=== PATIENT | female | born 1985 | race Caucasian/White ===

== ENCOUNTER 2016-11-27 17:15 | Emergency (ER) | payer OTHER ==
[~2016-11-27] VITALS: Ht 154.9 cm; Wt 81.0 kg
[2016-11-27 17:22] VITALS: TEMP 36.9; Ht 154.9 cm; Wt 81.0 kg
[2016-11-27] MEDS ORDERED: ONDANSETRON INJ 2 MG/ML 2 ML VIAL IV STA (18:00)
[2016-11-27] MEDS ORDERED: SODIUM CHLORIDE 0.9% 1000ML 1,000 ML IV ONE (18:00)
[2016-11-27] MEDS ORDERED: MoRPHine SULFATE 4 MG/ML 1 ML CARP\\VIAL IV STA ×3 (18:00→20:31)
[2016-11-27] MEDS ORDERED: SODIUM CHLORIDE 0.9% 1000ML 1,000 ML IV STA (18:00)
[2016-11-27] MEDS ORDERED: AMPH10CA3 PO (18:09)
[2016-11-27] MEDS ORDERED: OPTIRAY 320 IV PRN (18:15)
--- NOTE | 2016-11-27 18:18 | EMERGENCY ROOM VISIT NOTE ---
History Report prepared by Christian: Joann Vu Under the Supervision of: Dr. Maurilio Townsend M.D. First contact with patient: 17:44 Chief Complaint: ABDOMINAL PAIN Stated Complaint: POSS. HERNIA AND ADHESIONS ATTACHED TO BLADDER Nursing Triage Summary: pt reports after visit to [facility] and palpation to RLQ that has poss hernia , now with pain in that area History of Present Illness The patient is a 31 year old female who presents to the Emergency Room with complaints of constant RLQ abdominal pain for the past few months that worsened this afternoon. The patient has been experiencing pain around her scar for the past few months. She had a in 2008 and 2009. She spoke with her design supervisor about this and was referred to a gynecological surgeon. She saw the surgeon, Dr. Sharma, today and he was concerned for a hernia so he referred the patient to general surgery. She was advised to come to the ED if her pain worsened. The patient states that her pain increased after her abdomen was palpated today at the office. She describes her pain as "radiating" and rates her current pain as a 9/10 in severity. Coughing exacerbates her pain. The patient reports nausea and one episode of vomiting [employer]. She denies dysuria, hematuria, back pain, hematochezia, and melena. She denies any chance of . She still has her appendix and her ovaries. Source of History: patient, family Onset: the past few months Position: abdomen (RLQ) Symptom Intensity: 9/10 Quality: other (radiating) Timing: worsening Modifying Factors (Worsening): other (coughing and palpation) Associated Symptoms: + nausea, + vomiting, No back pain, No hematochezia, No melena, No urinary symptoms Review of Systems See HPI for pertinent positives & negatives. A total of 10 systems reviewed and were otherwise negative. Past Medical & Surgical Medical Problems: (1) History of lupus (2) Mixed connective tissue disease Old medical records were reviewed. Nurse's notes were reviewed and I agree with. Family History No pertinent history stated. Social History Smoking Status: Current Every Day Smoker Drug Use: none Marital Status: Housing Status: lives with family Current/Historical Medications Scheduled Amphetamine-Dextroamphetamine 10MG (Adderall Xr 10MG), 10 MG PO DAILY Scheduled PRN Oxycodone Immediate Rel Tab (Roxicodone Ir), 1-2 TAB PO Q4H PRN for Severe Pain Allergies Coded Allergies: Vancomycin (Verified Allergy, Severe, Red Man Syndrome, breathing difficulties, 11/27/16) Butorphanol (Verified Allergy, Intermediate, Agitation and hallucinations , 11/27/16) Metoclopramide (Verified Allergy, Intermediate, Agitation and hallucinations, 11/27/16) Zolpidem (Verified Allergy, Intermediate, Hallucinations, 11/27/16) Physical Exam Vital Signs Date Time Temp Pulse Resp B/P Pulse Ox O2 Delivery O2 Flow Rate FiO2 11/27/16 21:03 70 18 118/74 99 11/27/16 20:25 86 20 118/74 95 Room Air 11/27/16 18:38 89 20 109/75 95 Room Air 11/27/16 17:22 36.9 105 18 120/74 97 Room Air Physical Exam General: Well developed well nourished non ill appearing young female in no acute distress, breathing comfortably on room air. Normal speech HEENT: Normal cephalic atraumatic. Pupils are equal round and reactive to light. Sclera are anicteric. Extraocular movements are intact. Oropharynx is pink with moist mucous membranes. No swelling of the mouth lips or tongue. Neck: Supple with a midline trachea. No meningeal signs or stiffness, no JVD or bruits. No Stridor. Chest: Clear to auscultation bilaterally. No wheezes or rhonchi. No increased work of breathing. Heart: regular rate and rhythm. Abdomen: Soft mildly tender in the RLQ around her scar, no redness or warmth, possible mild induration. Extremities: No cyanosis clubbing or edema. No calf tenderness or assymetry Spine/Back. Non tender to palpation. No CVA tenderness Skin: Good turgor without rashes. Neurologic exam: Cranial nerves two through 12 are intact. Motor and sensation are intact and symmetrical throughout. Medical Decision & Procedures ER Provider Diagnostic Interpretation: Radiology results as stated below per my review and radiologist interpretation: ABDOMEN AND PELVIS CT WITH IV CONTRAST CT DOSE: 454.53 mGy.cm HISTORY: Right lower quadrant pain. TECHNIQUE: Multiaxial CT images of the abdomen and pelvis were performed following the use of intravenous contrast. COMPARISON STUDY: None. FINDINGS: The lung bases are clear. The liver, spleen, gallbladder, pancreas, kidneys, and adrenal glands are within normal limits. No bowel wall thickening or obstruction. No suspicious lytic or blastic osseous lesions. Small irregular soft tissue densities within the lower anterior pelvic subcutaneous fat abutting the rectus abdominis muscles favor scarring from prior . Dominant right ureter soft tissue density on the left measures 1.6 cm. No loculated fluid collections to suggest an abscess. The anterior abdominal wall is intact. No evidence for a ventral hernia. The bladder, uterus, and ovaries are within normal limits. No pelvic free fluid. Normal appendix. Colonic diverticulosis. IMPRESSION: 1. Small irregular soft tissue densities within the lower anterior pelvic subcutaneous fat abutting the rectus abdominis muscles favor scarring from prior . 2. No evidence for ventral hernia. 3. No bowel wall thickening or obstruction. 4. Colonic diverticulosis. 5. Normal appendix. Electronically signed by: Juan Nguyen M.D. 11/27/2016 8:05 PM Dictated Date/Time: 11/27/2016 7:57 PM Laboratory Results 11/27/16 18:05 Red Blood Count 4.76, Mean Corpuscular Volume 85.7, Mean Corpuscular Hemoglobin 30.5, Mean Corpuscular Hemoglobin Concent 35.5, Mean Platelet Volume 9.4, Neutrophils (%) (Auto) 55.9, Lymphocytes (%) (Auto) 35.4, Monocytes (%) (Auto) 7.0, Eosinophils (%) (Auto) 1.2, Basophils (%) (Auto) 0.2, Neutrophils # (Auto) 5.00, Lymphocytes # (Auto) 3.17, Monocytes # (Auto) 0.63, Eosinophils # (Auto) 0.11, Basophils # (Auto) 0.02 11/27/16 18:05 Test 11/27/16 00:00 11/27/16 18:05 Urine Color YELLOW Urine Appearance CLEAR (CLEAR) Urine pH 6.0 (4.5-7.5) Urine Specific [place] > 1.030 (1.000-1.030) Urine Protein NEG (NEG) Urine Glucose (UA) NEG (NEG) Urine Ketones NEG (NEG) Urine Occult Blood NEG (NEG) Urine Nitrite NEG (NEG) Urine Bilirubin NEG (NEG) Urine Urobilinogen NEG (NEG) Urine Leukocyte Esterase TRACE (NEG) Urine WBC (Auto) 10-30 /hpf (0-5) Urine RBC (Auto) 0-4 /hpf (0-4) Urine Hyaline Casts (Auto) 1-5 /lpf (0-5) Urine Epithelial Cells (Auto) >30 /lpf (0-5) Urine Bacteria (Auto) 2+ (NEG) Urine Pathogenic Casts /lpf (0) White Blood Count 8.96 K/uL (4.8-10.8) Red Blood Count 4.76 M/uL (4.2-5.4) Hemoglobin 14.5 g/dL (12.0-16.0) Hematocrit 40.8 % (37-47) Mean Corpuscular Volume 85.7 fL (80-100) Mean Corpuscular Hemoglobin 30.5 pg (25-34) Mean Corpuscular Hemoglobin Concent 35.5 g/dl (32-36) Platelet Count 303 K/uL (130-400) Mean Platelet Volume 9.4 fL (7.4-10.4) Neutrophils (%) (Auto) 55.9 % Lymphocytes (%) (Auto) 35.4 % Monocytes (%) (Auto) 7.0 % Eosinophils (%) (Auto) 1.2 % Basophils (%) (Auto) 0.2 % Neutrophils # (Auto) 5.00 K/uL (1.4-6.5) Lymphocytes # (Auto) 3.17 K/uL (1.2-3.4) Monocytes # (Auto) 0.63 K/uL (0.11-0.59) Eosinophils # (Auto) 0.11 K/uL (0-0.5) Basophils # (Auto) 0.02 K/uL (0-0.2) RDW Standard Deviation 40.1 fL (36.4-46.3) RDW Coefficient of Variation 12.8 % (11.5-14.5) Immature Granulocyte % (Auto) 0.3 % Immature Granulocyte # (Auto) 0.03 K/uL (0.00-0.02) Anion Gap 10.0 mmol/L (3-11) Est Creatinine Clear Calc Drug Dose 116.0 ml/min Estimated GFR () 136.3 Estimated GFR (Non- 117.6 BUN/Creatinine Ratio 14.0 (10-20) Calcium Level 8.8 mg/dl (8.5-10.1) Total Bilirubin 0.6 mg/dl (0.2-1) Direct Bilirubin 0.1 mg/dl (0-0.2) Aspartate Amino Transf (AST/SGOT) 23 U/L (15-37) Alanine Aminotransferase (ALT/SGPT) 41 U/L (12-78) Alkaline Phosphatase 65 U/L (45-117) Total Protein 7.2 gm/dl (6.4-8.2) Albumin 3.8 gm/dl (3.4-5.0) Lipase 57 U/L (73-393) Human Chorionic Gonadotropin, Qual NEG (NEG) Laboratory studies as stated above per my review. Medications Administered Medications (Trade) Dose Ordered Sig/Margarita Route Start Time Stop Time Status Last Admin Dose Admin Sodium Chloride (Nss 1000ml) 1,000 ml @ 999 mls/hr Q1H1M STAT IV 11/27/16 18:00 11/27/16 19:00 DC 11/27/16 18:37 999 MLS/HR Morphine Sulfate (MoRPHine SULFATE INJ) 4 mg NOW STAT IV 11/27/16 18:00 11/27/16 18:02 DC 11/27/16 18:37 4 MG Ondansetron HCl (Zofran Inj) 4 mg NOW STAT IV 11/27/16 18:00 11/27/16 18:02 DC 11/27/16 18:37 4 MG Morphine Sulfate (MoRPHine SULFATE INJ) 4 mg NOW STAT IV 11/27/16 19:13 11/27/16 19:15 DC 11/27/16 19:32 4 MG Morphine Sulfate (MoRPHine SULFATE INJ) 4 mg NOW STAT IV 11/27/16 20:31 11/27/16 20:32 DC 11/27/16 20:43 4 MG Oxycodone HCl (Roxicodone Immediate Rel 5MG Home Pack) 1 homepack UD ONCE PO 11/27/16 20:45 11/27/16 20:46 DC 11/27/16 20:42 1 HOMEPACK ED Course 1757: Past medical records reviewed. The patient was evaluated in room C4, and a complete history and physical examination were performed. 1800: Zofran 4 mg IV, morphine sulfate 4 mg IV, NSS 1000 ml @ 150 mls/hr IV, NSS 1000 ml @ 999 mls/hr IV 1823: I reassessed the patient at this time. She is resting more comfortably. 1910: I reassessed the patient. The morphine helped initially but her pain is starting to return. She is waiting to go to CT. 1912: Morphine sulfate 4 mg IV 2020: I reassessed the patient at this time. She is feeling better and resting comfortably. I discussed the results and treatment plan with the patient. I answered all pertaining questions that she had. She expressed understanding and verbalized agreement. The patient will be discharged home. 2030: Morphine sulfate 4 mg IV 2044: Oxycodone HCl 1 hopewell junctionpack PO Medical Decision Differential diagnoses includes hernia, abscess, appendicitis, gynecologic process, UTI, electrolyte abnormality. This patient comes in as described above. She was placed in room C4. She is having pain in her right lower abdomen that has been going on for a while and got worse today after she got examined by her design supervisor. She is concerned she could have a hernia along her incision site. IV access established she is not driving. She was given IV morphine and Zofran IV as well as IV fluids multiple blood tests was obtained. Urinalysis and culture was obtained. The CAT scan was obtained. He did receive additional IV morphine while she was here. She has no white count or fever to suggest infection. She is not . She's had no acute electrolyte metabolic abnormalities. Her urinalysis is suboptimal with greater than 30 epithelial cells and a cultures pending. I do not think she likely has UTI. CAT scan was unremarkable in terms of there and she has no hernia or any other acute abnormalities with exception of what the radiologist thinks is likely scar tissue along the wound site. She's had no redness or drainage. I will have her use ibuprofen for pain. For breakthrough pain, she can use OxyIR 5 mg and was warned that this could make her drowsy. She should follow-up with her doctor within next couple days for recheck and return if increasing pain, fever or chills, redness or warmth, worsening of symptoms, any new problems concerns. The patient was happy with plan and she was discharged home with her family driving. Impression Primary Impression: Right lower quadrant abdominal pain Scribe Attestation The scribe's documentation has been prepared under my direction and personally reviewed by me in its entirety. I confirm that the note above accurately reflects all work, treatment, procedures, and medical decision making performed by me. Departure Information Dispostion Home / Self-Care Prescriptions Oxycodone Immediate Rel Tab (ROXICODONE IR) 5 Mg Tab 1-2 TAB PO Q4H Y for Severe Pain, #24 TAB Prov: Maurilio Townsend M.D. 11/27/16 Referrals Tigist Whitfield M.D. (PCP) Forms HOME CARE DOCUMENTATION FORM, IMPORTANT VISIT INFORMATION Patient Instructions My [facility] Additional Instructions Rest. Drink plenty of fluids. For pain, may use OxyIR 5 mg, one or 2 pills every 4-6 hours as needed Return if: Increasing pain or swelling, worsening symptoms, fever chills, vomiting, any new problems or concerns Follow-up with in 1-2 days recheck.
[2016-11-27 18:19] LABS: BASO % 0.2 %; BASO ABS # 0.02 K/uL (0-0.2); COMPLETE YES; EOS % 1.2 %; HEMATOCRIT 40.8 % (37-47); IG% 0.3 %; LYMPH % 35.4 %; LYMPH ABS # 3.17 K/uL (1.2-3.4); MEAN CELL VOLUME 85.7 fL (80-100); MEAN CORPUSCULAR HEMOGLOBIN 30.5 pg (25-34); MEAN CORPUSCULAR HGB CONC 35.5 g/dl (32-36); MEAN PLATELET VOLUME 9.4 fL (7.4-10.4); NEUT % 55.9 %; PLATELET COUNT 303 K/uL (130-400); RED BLOOD COUNT 4.76 M/uL (4.2-5.4); WHITE BLOOD COUNT 8.96 K/uL (4.8-10.8)
[2016-11-27 18:37] LABS: CALCIUM 8.8 mg/dl (8.5-10.1); CREATININE 0.69 mg/dl (0.60-1.20); POTASSIUM 3.9 mmol/L (3.5-5.1)
[2016-11-27 19:19] LABS: PREG INTERNAL NEGATIVE QC NEG CLEAR BACKGROUND; PREG INTERNAL POSITIVE QC POS CONTROL LINE
--- NOTE | 2016-11-27 20:06 | DIAGNOSTIC IMAGING REPORT ---
ABDOMEN AND PELVIS CT WITH IV CONTRAST CT DOSE: 454.53 mGy.cm HISTORY: Right lower quadrant pain. TECHNIQUE: Multiaxial CT images of the abdomen and pelvis were performed following the use of intravenous contrast. COMPARISON STUDY: None. FINDINGS: The lung bases are clear. The liver, spleen, gallbladder, pancreas, kidneys, and adrenal glands are within normal limits. No bowel wall thickening or obstruction. No suspicious lytic or blastic osseous lesions. Small irregular soft tissue densities within the lower anterior pelvic subcutaneous fat abutting the rectus abdominis muscles favor scarring from prior . Dominant right ureter soft tissue density on the left measures 1.6 cm. No loculated fluid collections to suggest an abscess. The anterior abdominal wall is intact. No evidence for a ventral hernia. The bladder, uterus, and ovaries are within normal limits. No pelvic free fluid. Normal appendix. Colonic diverticulosis. IMPRESSION: 1. Small irregular soft tissue densities within the lower anterior pelvic subcutaneous fat abutting the rectus abdominis muscles favor scarring from prior . 2. No evidence for ventral hernia. 3. No bowel wall thickening or obstruction. 4. Colonic diverticulosis. 5. Normal appendix. Electronically signed by: Juan Nguyen M.D. 11/27/2016 8:05 PM Dictated Date/Time: 11/27/2016 7:57 PM
[2016-11-27] MEDS ORDERED: OXYC1TAB3 PO (20:32)
[2016-11-27] MEDS ORDERED: OXYCODONE IR HOME PACK PO ONE (20:45)
[2016-11-27 21:03] VITALS: BP 118/74; PULSE 70; O2SAT 99
[2016-11-27 21:44] LABS: URINE APPEARANCE CLEAR (CLEAR); URINE BILIRUBIN NEG (NEG); URINE COLOR YELLOW; URINE EPITHELIAL CELL AUTO >30 /lpf (0-5); URINE NITRITE NEG (NEG); UROBILINOGEN NEG (NEG)
[2016-11-27 21:53] LABS: MANUAL MICROSCOPIC REQUIRED? NO; REVIEW REQ? YES; URINE SPECIFIC GRAVITY > 1.030 (1.000-1.030)
== END 2016-11-27 21:05 | disposition home or self-care (01) ==
LOC: C.EDB 17:17 → C.EDC 21:05
DX: R10.31 Right lower quadrant pain (principal); R11.2 Nausea with vomiting, unspecified; Z98.890 Other specified postprocedural states; F17.200 Nicotine dependence, unspecified, uncomplicated

== ENCOUNTER → 2017-01-28 | Outpatient (CLI) | payer OTHER ==
[~2017-01-28] MED LIST: ADVIN10/60 INH; AMPH10CA3 PO; LEVO5TAB2 PO; MELO7.5T5 PO; OXYC1TAB3 PO; VNTHFA/IN INH
--- NOTE | 2017-01-28 16:52 | MAMMOGRAPHY REPORT ---
UNILATERAL RIGHT DIGITAL DIAGNOSTIC MAMMOGRAM TOMOSYNTHESIS WITH CAD AND TARGETED RIGHT ULTRASOUND: 01/28/2017 CLINICAL HISTORY: 31-year-old woman with bilateral subpectoral saline implants presents with pain in the lateral right breast. She also reports a high riding right-sided implant. No family history o f breast cancer. TECHNIQUE: First real-time high-resolution ultrasound was performed in the area of pain pointed out by the patient, within the lateral right breast. After ultrasound was performed and discussing the patient's symptoms, the decision was made to perform unilateral right mammography as well to better assess the implant. Therefore, right CC and MLO views of the breasts with and without implant displ acement views were obtained. Tomosynthesis was performed on the implant displaced views. Current st udy was also evaluated with a Computer Aided Detection (CAD) system. COMPARISON: Comparison is made to exam dated: 01/28/2017 ultrasound - [facility]. BREAST COMPOSITION: The tissue of the right breast is heterogeneously dense, which may obscure smal l masses. FINDINGS: Real-time high-resolution ultrasound was performed in the area of pain pointed out by the patient, along the lateral right breast from the approximate 8:00 to 10:00 axes, 15 cm from the nip ple. A portion of the lateral right subpectoral saline implant is identified. The implant is intac t. No discrete solid or cystic mass is seen in the area of pain. Mammographically, there is an intact subpectoral saline implant. There is no evidence of a suspicio us breast mass, architectural distortion or suspicious calcifications. Morphologically normal lymph nodes project over the superior pectoralis muscle on the right MLO view. IMPRESSION: ACR BI-RADS CATEGORY 1: NEGATIVE, TARGETED ULTRASOUND ACR BI-RADS CATEGORY 1: NEGATIVE There is no mammographic or targeted sonographic evidence of malignancy. No suspicious mammographic or sonographic abnormality is seen to explain the nonfocal mastalgia in the lateral right breast. I am unsure if the pain could be related to prior surgery or the location of the right implant. The refore, consider surgical consultation for implant assessment, particularly given the high riding na ture of the right implant compared to the left. These results and recommendations were discussed with the patient at the time of the exam. Approximately 10% of breast cancers are not detected with mammography. A negative mammographic repor t should not delay biopsy if a clinically suggestive mass is present. Martine Cortes M.D. ay/:01/28/2017 16:05:53 Beauty Specialist: Rosa Lion RT(R)(M), [facility] letter sent: Normal 1/2 BI-RADS Code: ACR BI-RADS Category 1: Negative Ultrasound BI-RADS: ACR BI-RADS Category 1: Negative
== END | disposition home or self-care (01) ==
LOC: C.MAMM 13:28
PROVIDERS: ATTEND Family Medicine
DX: N64.4 Mastodynia (principal)

== ENCOUNTER 2017-09-10 23:43 | Emergency (ER) | payer OTHER ==
[~2017-09-10] VITALS: Ht 154.9 cm; Wt 89.9 kg
[~2017-09-10 23:43] MED LIST changes: -ADVIN10/60 INH; -LEVO5TAB2 PO; -MELO7.5T5 PO; -OXYC1TAB3 PO; -VNTHFA/IN INH
[2017-09-10 23:54] VITALS: TEMP 36.9; Ht 154.9 cm; Wt 89.9 kg
[2017-09-11] MEDS ORDERED: MoRPHine SULFATE 4 MG/ML 1 ML CARP\\VIAL IV STA (00:56)
[2017-09-11] MEDS ORDERED: ONDANSETRON INJ 2 MG/ML 2 ML VIAL IV STA (00:56)
[2017-09-11] MEDS ORDERED: OPTIRAY 320 IV PRN (01:15)
[2017-09-11 01:19] LABS: BASO % 0.4 %; BASO ABS # 0.04 K/uL (0-0.2); COMPLETE YES; EOS % 3.6 %; HEMATOCRIT 38.8 % (37-47); IG% 0.4 %; LYMPH % 34.5 %; LYMPH ABS # 3.75 K/uL (1.2-3.4); MEAN CELL VOLUME 86.8 fL (80-100); MEAN CORPUSCULAR HEMOGLOBIN 29.5 pg (25-34); MEAN PLATELET VOLUME 9.5 fL (7.4-10.4); MONO % 8.3 %; NEUT % 52.8 %; PLATELET COUNT 246 K/uL (130-400); RED BLOOD COUNT 4.47 M/uL (4.2-5.4); WHITE BLOOD COUNT 10.88 K/uL (4.8-10.8)
[2017-09-11 01:40] LABS: BUN/CREATININE RATIO 21.2 (10-20); CALCIUM 8.4 mg/dl (8.5-10.1); CREATININE 0.66 mg/dl (0.60-1.20); POTASSIUM 3.9 mmol/L (3.5-5.1)
[2017-09-11 01:42] LABS: PREG INTERNAL NEGATIVE QC NEG CLEAR BACKGROUND; PREG INTERNAL POSITIVE QC POS CONTROL LINE
[2017-09-11] MEDS ORDERED: VNTHFA/IN INH (02:48)
[2017-09-11] MEDS ORDERED: LEVO5TAB2 PO (02:48)
[2017-09-11] MEDS ORDERED: MELO7.5T5 PO (02:48)
[2017-09-11] MEDS ORDERED: ADVIN10/60 INH (02:48)
[2017-09-11] MEDS ORDERED: OXYC1TAB3 PO (03:13)
[2017-09-11] MEDS ORDERED: OXYCODONE IR HOME PACK PO ONE (03:15)
[2017-09-11 03:24] VITALS: BP 113/81; PULSE 75; O2SAT 96
--- NOTE | 2017-09-11 06:52 | EMERGENCY ROOM VISIT NOTE ---
History First contact with patient: 00:45 Chief Complaint: RECTAL BLEEDING Stated Complaint: HEMORRHOID Nursing Triage Summary: Bleeding hemorrhoid, saw her PCP and was referred to surgeon. Patient to see surgeon friday but pain is unbearable tonight. History of Present Illness The patient is a 32 year old female who presents to the Emergency Room with complaints of severe rectal pain for the past few days has a history of hemorrhoids but states this feels different. She has tried Preparation H, Nitropaste, witch soy pads and many other things. Patient has appointment on Friday with surgery. Pain currently 9 out of 10. Nothing makes it better or worse. It does not radiate. Patient denies chest pain, dyspnea, fever, chills , vomiting, diarrhea Review of Systems See HPI for pertinent positives & negatives. A total of 10 systems reviewed and were otherwise negative. Past Medical/Surgical History Medical Problems: (1) History of lupus (2) Mixed connective tissue disease Social History Smoking Status: Former Smoker Drug Use: none Marital Status: Housing Status: lives with family Current/Historical Medications Scheduled Fluticasone Prop/Salmeterol (Advair Diskus 100/50 60 Dose), 1 PUFF INH BID Levocetirizine Dihydrochloride (Xyzal), 5 MG PO HS Meloxicam (Mobic), 7.5 MG PO BID Scheduled PRN Albuterol Hfa (Ventolin Hfa), 2 PUFFS INH Q6H PRN for SOB/Wheezing Oxycodone Immediate Rel Tab (Roxicodone Ir), 1-2 TAB PO Q4H PRN for Severe Pain Physical Exam Vital Signs Date Time Temp Pulse Resp B/P (MAP) Pulse Ox O2 Delivery O2 Flow Rate FiO2 09/11/17 03:24 75 18 113/81 96 Room Air 09/11/17 03:13 68 16 99/49 97 Room Air 09/11/17 02:21 89 18 125/80 96 Room Air 09/11/17 01:33 75 16 134/69 96 Room Air 09/10/17 23:54 36.9 78 18 125/77 94 Room Air Physical Exam VITALS: Vitals are noted on the nurse's note and reviewed by myself. Vital signs stable. GENERAL: White female, in no acute distress, nondiaphoretic, well-developed well -nourished. SKIN: Capillary reflex less than 2 seconds. HEENT: Normocephalic. PERRLA. EOMI. Nares patent. Mucous membranes moist. Neck is supple without nuchal rigidity. HEART: Regular rate and rhythm without murmurs gallops or rubs. LUNGS: Clear to auscultation bilaterally without wheezes, rales or rhonchi. No retractions or accessory muscle use. ABDOMEN: Positive bowel sounds x 4. Normal tympanic percussion. Soft, nontender, without masses or organomegaly. Lara sign negative. No guarding or rebound tenderness. No CVA tenderness Rectal exam: Nonthrombosed hemorrhoid at 6:00. No fissures or tears. No fluctuance. Computer Repair Technician present MUSCULOSKELETAL: No gross musculoskeletal defects. No pedal edema. No calf tenderness. NEURO: Patient was alert and oriented to person place and time. Normal sensation to light and sharp touch. No focal neurological deficits. Medical Decision & Procedures Laboratory Results 09/11/17 01:10 Red Blood Count 4.47, Mean Corpuscular Volume 86.8, Mean Corpuscular Hemoglobin 29.5, Mean Corpuscular Hemoglobin Concent 34.0, Mean Platelet Volume 9.5, Neutrophils (%) (Auto) 52.8, Lymphocytes (%) (Auto) 34.5, Monocytes (%) (Auto) 8.3, Eosinophils (%) (Auto) 3.6, Basophils (%) (Auto) 0.4, Neutrophils # (Auto) 5.76, Lymphocytes # (Auto) 3.75, Monocytes # (Auto) 0.90, Eosinophils # (Auto) 0.39, Basophils # (Auto) 0.04 09/11/17 01:10 Test 09/11/17 01:10 White Blood Count 10.88 K/uL (4.8-10.8) Red Blood Count 4.47 M/uL (4.2-5.4) Hemoglobin 13.2 g/dL (12.0-16.0) Hematocrit 38.8 % (37-47) Mean Corpuscular Volume 86.8 fL (80-100) Mean Corpuscular Hemoglobin 29.5 pg (25-34) Mean Corpuscular Hemoglobin Concent 34.0 g/dl (32-36) Platelet Count 246 K/uL (130-400) Mean Platelet Volume 9.5 fL (7.4-10.4) Neutrophils (%) (Auto) 52.8 % Lymphocytes (%) (Auto) 34.5 % Monocytes (%) (Auto) 8.3 % Eosinophils (%) (Auto) 3.6 % Basophils (%) (Auto) 0.4 % Neutrophils # (Auto) 5.76 K/uL (1.4-6.5) Lymphocytes # (Auto) 3.75 K/uL (1.2-3.4) Monocytes # (Auto) 0.90 K/uL (0.11-0.59) Eosinophils # (Auto) 0.39 K/uL (0-0.5) Basophils # (Auto) 0.04 K/uL (0-0.2) RDW Standard Deviation 41.2 fL (36.4-46.3) RDW Coefficient of Variation 12.9 % (11.5-14.5) Immature Granulocyte % (Auto) 0.4 % Immature Granulocyte # (Auto) 0.04 K/uL (0.00-0.02) Anion Gap 4.0 mmol/L (3-11) Est Creatinine Clear Calc Drug Dose 127.1 ml/min Estimated GFR () 137.4 Estimated GFR (Non- 118.5 BUN/Creatinine Ratio 21.2 (10-20) Calcium Level 8.4 mg/dl (8.5-10.1) Human Chorionic Gonadotropin, Qual NEG (NEG) Medications Administered Medications (Trade) Dose Ordered Sig/Margarita Route Start Time Stop Time Status Last Admin Dose Admin Morphine Sulfate (MoRPHine SULFATE INJ) 4 mg NOW STAT IV 09/11/17 00:56 09/11/17 00:58 DC 09/11/17 01:12 4 MG Ondansetron HCl (Zofran Inj) 4 mg NOW STAT IV 09/11/17 00:56 09/11/17 00:58 DC 09/11/17 01:11 4 MG Oxycodone HCl (Roxicodone Immediate Rel 5MG Home Pack) 1 homepack UD ONCE PO 09/11/17 03:15 09/11/17 03:16 DC 09/11/17 03:14 1 HOMEPACK ED Course Prior records reviewed and summarized as above. Triage Nursing notes reviewed. The patient's history was concerning for rectal pain Differential diagnosis: Etiologies such as cellulitis, abscess, MRSA infection,hemorrhoids, fissure, tear,necrotizing fasciitis, as well as others were entertained.. Physical examination: As above ER treatment provided: Morphine, Zofran, OxyIR home pack On reassessment the patient felt better. Diagnostics interpreted by me: The labs revealed mild leukocytosis. Stable H&H Imaging studies: Pelvis CT negative for abscess per radiology This appears to be isolated hemorrhoids. Negative CT scan. Stable H&H. Patient was advised to continue her regimen for her hemorrhoids and continue her stool softeners. She is advised to keep her appointment tomorrow with surgery for her ongoing hemorrhoids or here in the ER sooner for severe pain, fevers, vomiting, worsening signs or symptoms or as needed. Patient is neurovascularly and neurologically intact. She is well-appearing. No signs of abscess or sepsis. By the evaluation outlined above emergent etiologies such as abscess, necrotizing fasciitis, as well as others were deemed relatively unlikely. The pt informed about the findings as listed above. All questions were answered and pleased with the treatment. Return instructions were outlined and the patient was discharged in stable condition. Outpatient prescription management: OxyIR Referral: The patient was referred back to surgery and primary care physician for follow- up in 2 to 3 days for a recheck of the current condition. Case reviewed with my attending Medical Decision As above [place] Drug Monitoring Program Search Results: patient reviewed within database, no issues identified Medication Reconcilliation Current Medication List: was personally reviewed by me Blood Pressure Screening Patient's blood pressure: Normal blood pressure Impression Primary Impression: Hemorrhoids Departure Information Dispostion Home / Self-Care Condition GOOD Prescriptions Oxycodone Immediate Rel Tab (ROXICODONE IR) 5 Mg Tab 1-2 TAB PO Q4H Y for Severe Pain, #10 TAB initial course Prov: Crystal Viramontes .MARK 09/11/17 Forms WORK / SCHOOL INSTRUCTIONS, HOME CARE DOCUMENTATION FORM, IMPORTANT VISIT INFORMATION Patient Instructions Hemorrhoids Self Care, My [facility] [employer] Additional Instructions DO NOT drive, drink alcohol, operate machinery, or perform dangerous activities today. You were given medications in the ER that can affect your ability to safely function or operate a vehicle. Continue all your treatments for your hemorrhoids. Recommend stool softener. Avoid straining when he go the bathroom. Oxycodone (OxyIR) 5mg: Take 1-2 pills every four hours for breakthrough pain. Avoid alcohol, operating machinery or dangerous equipment, working on ladders or roofs, DRIVING, or situations where being under the influence may be dangerous. It is recommended to use an drtx-ywa-ciybnco stool softener such as Colace, 100mg twice daily while taking this medication to avoid constipation. Ibuprofen(Motrin, Advil) may be used for fever or pain. Use 600mg every six hours as needed. Take with food. Avoid using more than 2400mg in a 24 hour period. Do not use 2400mg per day for more than three consecutive days without physician direction. Prolonged inappropriate use can lead to stomach upset or ulcers. (AND/OR) Acetaminophen(Tylenol) may be used for fever or pain. Use 1000mg every six hours as needed. Avoid using more than 3000mg in a 24 hour period. Rest and drink plenty of fluids as tolerated. Continue current medications. Avoid strenuous activities and anything that worsens your pain. Resume normal activities once your symptoms resolve. Return to the ER immediately for worsening or persistent rectal pain, abdominal pain, vomiting, fevers, chest pains, difficulty breathing, worsening of your condition, or as needed. Follow up with your surgeon as scheduled and primary physician in 2-3 days for a recheck of your current condition. Problem Qualifiers Primary Impression: Hemorrhoids Hemorrhoid type: unspecified Qualified Codes: K64.9 - Unspecified hemorrhoids
--- NOTE | 2017-09-11 07:24 | DIAGNOSTIC IMAGING REPORT ---
PELVIS W/IV CONT ONLY (CT) HISTORY: 32 years-old Female presents with acute severe rectal pain with history of hemorrhoids COMPARISON: CT abdomen and pelvis 11/27/2016 TECHNIQUE: Multiple axial CT images of the pelvis were obtained following the intravenous administration of 94 no Optiray 320 IV contrast. A dose lowering technique was used consistent with the principals of DWAYNE. FINDINGS: 2.1 x 1.6 cm cystic structure with peripheral enhancement of the left adnexum suggests dominant follicle. Uterus and right adnexum are unremarkable. There are a few scattered noninflamed colonic diverticula. Normal appendix. No adenopathy. Distal aorta appears normal in course and caliber. Irregular soft tissue attenuating structures of the lower anterior abdominal wall are again seen, lesion of the left measuring 1.2 x 1.7 cm and lesion of the right measuring 1.0 x 1.2 cm. Again, these lesions are seen abutting the rectus musculature appear unchanged from comparison. No focal soft tissue abnormality of the rectum or perirectal tissues. No perirectal abscess. The bones appear intact. Mild intervertebral disc space narrowing with posterior disc bulge at L5-S1. IMPRESSION: 1. No acute intrapelvic abnormality identified. No rectal inflammatory change or perirectal abscess. 2. Mild colonic diverticulosis without diverticulitis. 3. Cystic structure of the left adnexum suggests dominant follicle, 2.1 cm. 4. Irregular soft tissue attenuating structures of the deep subcutaneous lower anterior abdominal wall abutting the rectus musculature likely reflects scarring from prior section. If the patient complains of catamenial associated pain within this region, implants of endometriosis are an additional differential consideration. The above report was generated using voice recognition software. It may contain grammatical, syntax or spelling errors. Electronically signed by: Juan Valenzuela M.D. 09/11/2017 7:22 AM Dictated Date/Time: 09/11/2017 7:00 AM
== END 2017-09-11 03:25 | disposition home or self-care (01) ==
LOC: C.EDB 23:46
DX: K64.9 Unspecified hemorrhoids (principal); Z87.891 Personal history of nicotine dependence

== ENCOUNTER 2017-10-11 02:28 | Emergency (ER) | payer OTHER ==
[~2017-10-11] VITALS: Ht 152.4 cm; Wt 89.6 kg
[~2017-10-11 02:28] MED LIST changes: +ADVIN10/60 INH; -AMPH10CA3 PO; +LEVO5TAB2 PO; +MELO7.5T5 PO; +OXYC1TAB3 PO; +VNTHFA/IN INH
[2017-10-11 02:32] VITALS: TEMP 36.7; Ht 152.4 cm; Wt 89.6 kg
[2017-10-11] MEDS ORDERED: SODIUM CHLORIDE 0.9% 1000ML 1,000 ML IV STA (02:46)
--- NOTE | 2017-10-11 02:51 | EMERGENCY ROOM VISIT NOTE ---
History Report prepared by Christian: Benjamin Barajas Under the Supervision of: Dr. Juju Joyce D.O. First contact with patient: 02:35 Chief Complaint: FLU LIKE SX Stated Complaint: FLU LIKE History of Present Illness The patient is a 32 year old female who presents to the Emergency Room with complaints of worsening flu-like symptoms that onset roughly 72 hours prior to arrival. The patient states that she is currently experiencing nasal congestion/ runny nose, a non producing cough, diarrhea, and chills. She also noted experiencing some left sided chest pain this evening before she had a syncopal episode in the bathtub. The patient feels as though she is warm, but has not had any recorded high temperatures. She notes that she has been hospitalized with the flu three times before due to a connective tissue disease which causes her to decompensate quickly. 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 A total of 10 systems reviewed and were otherwise negative. Past Medical & Surgical Medical Problems: (1) History of lupus (2) Mixed connective tissue disease Family History Psoriasis Social History Smoking Status: Former Smoker Drug Use: none Marital Status: Housing Status: lives with family Current/Historical Medications Scheduled Benzonatate (Tessalon Perles), 100 MG PO Q8 Fluticasone Prop/Salmeterol (Advair Diskus 100/50 60 Dose), 1 PUFF INH BID Levocetirizine Dihydrochloride (Xyzal), 5 MG PO HS Meloxicam (Mobic), 7.5 MG PO BID Scheduled PRN Albuterol Hfa (Ventolin Hfa), 2 PUFFS INH Q6H PRN for SOB/Wheezing Oxycodone Immediate Rel Tab (Roxicodone Ir), 1-2 TAB PO Q4H PRN for Severe Pain Allergies Coded Allergies: Vancomycin (Verified Allergy, Severe, Red Man Syndrome, breathing difficulties, 09/11/17) Butorphanol (Verified Allergy, Intermediate, Agitation and hallucinations , 09/11/17) Metoclopramide (Verified Allergy, Intermediate, Agitation and hallucinations, 09/11/17) Zolpidem (Verified Allergy, Intermediate, Hallucinations, 09/11/17) Physical Exam Vital Signs Date Time Temp Pulse Resp B/P (MAP) Pulse Ox O2 Delivery O2 Flow Rate FiO2 10/11/17 05:32 79 20 112/64 97 Room Air 10/11/17 04:02 88 20 119/71 98 Room Air 10/11/17 03:06 81 10/11/17 02:32 36.7 86 18 117/68 96 Room Air Physical Exam GENERAL: alert, well appearing, well nourished, no distress, non-toxic EYE EXAM: normal conjunctiva, PERRL and EOM's grossly intact OROPHARYNX: no exudate, no erythema, lips, buccal mucosa, and tongue normal and mucous membranes are moist EARS: Small effusions behind both TMs. No erythema no bulging. NECK: supple, no nuchal rigidity, no adenopathy, non-tender LUNGS: Clear to auscultation. Normal chest wall mechanics. No wheezes, rhonchi, or rales. HEART: no murmurs, S1 normal and S2 normal ABDOMEN: abdomen soft, non-tender, normo-active bowel sounds, no masses, no rebound or guarding. BACK: Back is symmetrical on inspection and there is no deformity, no midline tenderness, no CVA tenderness. SKIN: no rashes and no bruising UPPER EXTREMITIES: upper extremities are grossly normal. Nml ROM, nml pulses. LOWER EXTREMITIES: No pitting edema. Nml ROM, nml pulses. NEURO EXAM: Normal sensorium Medical Decision & Procedures ER Provider Diagnostic Interpretation: Radiology results have been interpreted by the radiologist and reviewed by me. NORMAL CHEST X-RAY: A study of the chest was reviewed and was negative for infiltrate, focal consolidation, effusion, pneumothorax, or wide mediastinum. KUB: There is scattered stool and air, no definite SBO, no free air. Laboratory Results 10/11/17 03:00 Red Blood Count 4.46, Mean Corpuscular Volume 86.3, Mean Corpuscular Hemoglobin 30.5, Mean Corpuscular Hemoglobin Concent 35.3, Mean Platelet Volume 9.6, Neutrophils (%) (Auto) 61.1, Lymphocytes (%) (Auto) 21.2, Monocytes (%) (Auto) 10.9, Eosinophils (%) (Auto) 6.1, Basophils (%) (Auto) 0.5, Neutrophils # (Auto ) 6.37, Lymphocytes # (Auto) 2.21, Monocytes # (Auto) 1.13, Eosinophils # (Auto ) 0.63, Basophils # (Auto) 0.05 10/11/17 03:00 Test 10/11/17 02:53 10/11/17 03:00 10/11/17 03:40 Influenza Type A Antigen Neg for Influ A (NEG) Influenza Type B Antigen Neg for Influ B (NEG) White Blood Count 10.41 K/uL (4.8-10.8) Red Blood Count 4.46 M/uL (4.2-5.4) Hemoglobin 13.6 g/dL (12.0-16.0) Hematocrit 38.5 % (37-47) Mean Corpuscular Volume 86.3 fL (80-100) Mean Corpuscular Hemoglobin 30.5 pg (25-34) Mean Corpuscular Hemoglobin Concent 35.3 g/dl (32-36) Platelet Count 222 K/uL (130-400) Mean Platelet Volume 9.6 fL (7.4-10.4) Neutrophils (%) (Auto) 61.1 % Lymphocytes (%) (Auto) 21.2 % Monocytes (%) (Auto) 10.9 % Eosinophils (%) (Auto) 6.1 % Basophils (%) (Auto) 0.5 % Neutrophils # (Auto) 6.37 K/uL (1.4-6.5) Lymphocytes # (Auto) 2.21 K/uL (1.2-3.4) Monocytes # (Auto) 1.13 K/uL (0.11-0.59) Eosinophils # (Auto) 0.63 K/uL (0-0.5) Basophils # (Auto) 0.05 K/uL (0-0.2) RDW Standard Deviation 40.6 fL (36.4-46.3) RDW Coefficient of Variation 12.7 % (11.5-14.5) Immature Granulocyte % (Auto) 0.2 % Immature Granulocyte # (Auto) 0.02 K/uL (0.00-0.02) Anion Gap 8.0 mmol/L (3-11) Est Creatinine Clear Calc Drug Dose 101.2 ml/min Estimated GFR () 113.0 Estimated GFR (Non- 97.5 BUN/Creatinine Ratio 12.8 (10-20) Calcium Level 8.5 mg/dl (8.5-10.1) Total Bilirubin 0.3 mg/dl (0.2-1) Aspartate Amino Transf (AST/SGOT) 12 U/L (15-37) Alanine Aminotransferase (ALT/SGPT) 26 U/L (12-78) Alkaline Phosphatase 78 U/L (45-117) Total Protein 7.0 gm/dl (6.4-8.2) Albumin 3.3 gm/dl (3.4-5.0) Globulin 3.7 gm/dl (2.5-4.0) Albumin/Globulin Ratio 0.9 (0.9-2) Human Chorionic Gonadotropin, Qual NEG (NEG) Monoscreen NEG (NEG) Urine Color DK YELLOW Urine Appearance CLEAR (CLEAR) Urine pH 5.5 (4.5-7.5) Urine Specific [place] 1.033 (1.000-1.030) Urine Protein NEG (NEG) Urine Glucose (UA) NEG (NEG) Urine Ketones TRACE (NEG) Urine Occult Blood NEG (NEG) Urine Nitrite NEG (NEG) Urine Bilirubin NEG (NEG) Urine Urobilinogen NEG (NEG) Urine Leukocyte Esterase NEG (NEG) Laboratory results per my review. Medications Administered Medications (Trade) Dose Ordered Sig/Margarita Route Start Time Stop Time Status Last Admin Dose Admin Sodium Chloride 1,000 ml @ 999 mls/hr Q1H1M STAT IV 10/11/17 02:46 10/11/17 03:46 DC 10/11/17 03:01 999 MLS/HR Acetaminophen (Tylenol Tab) 1,000 mg NOW STAT PO 10/11/17 04:16 10/11/17 04:18 DC 10/11/17 04:19 1,000 MG Ketorolac Tromethamine (Toradol Inj) 30 mg NOW STAT IV 10/11/17 04:20 10/11/17 04:22 DC 10/11/17 04:25 30 MG Benzonatate (Tessalon Perles Cap) 100 mg NOW ONCE PO 10/11/17 04:30 10/11/17 04:31 DC 10/11/17 04:25 100 MG Albuterol/ Ipratropium (Duoneb) 3 ml NOW STAT INH 10/11/17 04:20 10/11/17 04:22 DC 10/11/17 04:25 3 ML ECG Indication: syncope Rate (beats per minute): 80 Rhythm: normal sinus Findings: no acute ischemic change, no ectopy, other (Normal intervals) ED Course 0239: The patient was evaluated in room A10. A complete history and physical exam was performed. 0246: Ordered Sodium Chloride 1000 mL @ 999 mL/hr IV. 0414: I checked on the patient at this time. Her symptoms are unchanged. 0416: Ordered Tylenol Tab 1000 mg PO. 0420: Ordered Duoneb 3 mL INH, Toradol 30 mg IV. 0430: Ordered Benzonatate 100 mg PO. 0541: Upon reevaluation, the patient is feeling better. I discussed the findings and the treatment plan with the patient. She verbalizes agreement and understanding. The patient was discharged home. Medical Decision Differential diagnosis: Etiologies such as viral syndrome, otitis, pharyngitis, pneumonia, influenza, meningitis, urinary tract infection, sepsis, bacteremia, as well as others were entertained. No evidence of bacteremia/sepsis, VS stable. Negative flu and strep. Pt likely with viral syndrome. No sx to suggest meningitis/encephalitis. No focal infiltrate on cxr. Improved here with IVF, meds, and neb tx. Discussed use of spacer with MDI at home which she hasn't been using. Discussed close f/ u with PCP, sx to watch/return for, she verbalized understanding and is agreeable with plan. Medication Reconcilliation Current Medication List: was personally reviewed by me Blood Pressure Screening Patient's blood pressure: Normal blood pressure Impression Primary Impression: Viral syndrome Additional Impressions: Diarrhea URI (upper respiratory infection) Scribe Attestation The scribe's documentation has been prepared under my direction and personally reviewed by me in its entirety. I confirm that the note above accurately reflects all work, treatment, procedures, and medical decision making performed by me. Departure Information Dispostion Home / Self-Care Prescriptions Benzonatate (Tessalon Perles) 100 Mg Cap 100 MG PO Q8 for Cough, #30 CAP Prov: Juju Joyce, 10/11/17 Referrals Elis Malin M.D. (PCP) Patient Instructions My [facility] Additional Instructions Please follow-up with your family doctor to recheck your symptoms. You may use your inhaler up to every 4 hours as needed, please use the spacer with the inhaler. You may use the cough medicine as needed. You may continue using tylenol and ibuprofen for pain or fevers. Please do not take ibuprofen on an empty stomach and please make sure you are drinking plenty of water. If you have any worsening symptoms, please return to the emergency room. Problem Qualifiers Additional Impressions: Diarrhea Diarrhea type: unspecified type Qualified Codes: R19.7 - Diarrhea, unspecified URI (upper respiratory infection) URI type: unspecified URI Qualified Codes: J06.9 - Acute upper respiratory infection, unspecified
[2017-10-11 03:14] LABS: BASO % 0.5 %; BASO ABS # 0.05 K/uL (0-0.2); EOS % 6.1 %; EOS ABS # 0.63 K/uL (0-0.5); HEMATOCRIT 38.5 % (37-47); HEMOGLOBIN 13.6 g/dL (12.0-16.0); IG# 0.02 K/uL (0.00-0.02); LYMPH % 21.2 %; LYMPH ABS # 2.21 K/uL (1.2-3.4); MEAN CELL VOLUME 86.3 fL (80-100); MEAN CORPUSCULAR HEMOGLOBIN 30.5 pg (25-34); MEAN CORPUSCULAR HGB CONC 35.3 g/dl (32-36); MEAN PLATELET VOLUME 9.6 fL (7.4-10.4); MONO % 10.9 %; MONO ABS # 1.13 K/uL (0.11-0.59); NEUT % 61.1 %; NEUT ABS # 6.37 K/uL (1.4-6.5); PLATELET COUNT 222 K/uL (130-400); RED CELL DISTRIBUTION WIDTH CV 12.7 % (11.5-14.5); RED CELL DISTRIBUTION WIDTH SD 40.6 fL (36.4-46.3); WHITE BLOOD COUNT 10.41 K/uL (4.8-10.8)
[2017-10-11 03:38] LABS: ALBUMIN 3.3 gm/dl (3.4-5.0); CALCIUM 8.5 mg/dl (8.5-10.1); CREATININE 0.81 mg/dl (0.60-1.20); POTASSIUM 3.6 mmol/L (3.5-5.1)
[2017-10-11 03:45] LABS: MONOSPOT NEG (NEG)
[2017-10-11 03:56] LABS: INFLUENZA B ANTIGEN Neg for Influ B (NEG)
[2017-10-11] MEDS ORDERED: ACETAMINOPHEN 500 MG TAB PO STA (04:16)
[2017-10-11] MEDS ORDERED: ALBUT/IPRATROP 3MG/0.5MG NEB 3 ML VIAL INH STA (04:20)
[2017-10-11] MEDS ORDERED: KETOROLAC TROMETHAMINE 30 MG/ML VIAL IV STA (04:20)
[2017-10-11] MEDS ORDERED: BENZONATATE 100MG CAP PO ONE (04:30)
[2017-10-11 05:32] VITALS: BP 112/64; PULSE 79; O2SAT 97
[2017-10-11] MEDS ORDERED: BENZ100C84 PO (05:41)
--- NOTE | 2017-10-11 07:22 | DIAGNOSTIC IMAGING REPORT ---
CHEST 2 VIEWS ROUTINE CLINICAL HISTORY: cough, fevers, chest pain COMPARISON STUDY: No previous studies for comparison. FINDINGS: The cardiac and mediastinal contours are normal. There is no evidence of focal pulmonary consolidation. There is no evidence of failure. No pleural effusions are visualized.[ IMPRESSION: No active disease in the chest. Electronically signed by: Rosas Pak M.D. 10/11/2017 7:21 AM Dictated Date/Time: 10/11/2017 7:21 AM
--- NOTE | 2017-10-11 07:23 | DIAGNOSTIC IMAGING REPORT ---
KUB CLINICAL HISTORY: diarrhea COUGH, FEVER. COMPARISON STUDY: CT scan dated the 2016 FINDINGS: There is no pathologic bowel dilatation. There are no transition zones indicate bowel obstruction. No abnormal abdominal calcifications are visualized. IMPRESSION: Normal bowel gas pattern. Electronically signed by: Rosas Pak M.D. 10/11/2017 7:22 AM Dictated Date/Time: 10/11/2017 7:22 AM
== END 2017-10-11 05:50 | disposition home or self-care (01) ==
LOC: C.EDB 02:29 → C.EDA 05:50
DX: B34.9 Viral infection, unspecified (principal); R19.7 Diarrhea, unspecified; J06.9 Acute upper respiratory infection, unspecified; Z86.2 Personal history of diseases of the blood and blood-forming organs and certain disorders involving the immune mechanism; Z87.891 Personal history of nicotine dependence; Z79.899 Other long term (current) drug therapy

== ENCOUNTER 2018-02-18 20:35 | Emergency (ER) | payer OTHER ==
[~2018-02-18] VITALS: Ht 152.4 cm; Wt 77.7 kg
[~2018-02-18 20:35] MED LIST changes: +BENZ100C84 PO
[2018-02-18 20:44] VITALS: TEMP 36.9; Ht 152.4 cm; Wt 77.7 kg
[2018-02-18] MEDS ORDERED: MoRPHine SULFATE 10 MG/ML CARP/VIAL IM STA (20:56)
[2018-02-18] MEDS ORDERED: MoRPHine SULFATE 4 MG/ML 1 ML CARP\\VIAL ONE (21:06)
[2018-02-18] MEDS ORDERED: MoRPHine SULFATE 2 MG/ML CARP ONE (21:06)
--- NOTE | 2018-02-18 21:36 | DIAGNOSTIC IMAGING REPORT ---
RIGHT FOOT 3 VIEWS HISTORY: Distal R foot pain COMPARISON: None. FINDINGS: There is no fracture or dislocation. Dorsal soft tissue swelling within the forefoot. Small posterior calcaneal spur. No radiopaque foreign bodies. IMPRESSION: No fractures. Electronically signed by: Juan Nguyen M.D. 02/18/2018 9:34 PM Dictated Date/Time: 02/18/2018 9:33 PM
[2018-02-18] MEDS ORDERED: OXYCODONE IR HOME PACK PO STA (22:10)
[2018-02-18] MEDS ORDERED: OXYC1TAB3 PO ×2 (22:14→22:16)
--- NOTE | 2018-02-18 22:17 | EMERGENCY ROOM VISIT NOTE ---
History First contact with patient: 20:48 Chief Complaint: FOOT PAIN Stated Complaint: PAIN, BURNING FOOT History of Present Illness The patient is a 32 year old female who presents to the Emergency Room via private vehicle with complaints of "pain, burning foot". The patient states that this past Friday she developed irritation at the level of the toes in the right foot that feels as though it is deep. She denies any trauma or injury. It feels like there is a stone or something embedded in her foot. She states that the pain is been progressing until tonight where it is nearly unbearable. She rates the pain as a 9/10. She was seen in urgent care and has a follow-up with podiatry but cannot see them until March 19. She notes pain is worse with walking and now it is burning in nature. It is sharp and also tingly. She notes she is on immunosuppressants for her lupus. She denies chance of per Review of Systems A complete 6-point Review of Systems was discussed with the patient, with pertinent positives and negatives listed in the History of Present Illness. All remaining Review of Systems questions can be considered negative unless otherwise specified. Past Medical/Surgical History Medical Problems: (1) History of lupus (2) Mixed connective tissue disease Family History Psoriasis Social History Smoking Status: Current Every Day Smoker Drug Use: none Marital Status: Housing Status: lives with family Current/Historical Medications Scheduled Benzonatate (Tessalon Perles), 100 MG PO Q8 Fluticasone Prop/Salmeterol (Advair Diskus 100/50 60 Dose), 1 PUFF INH BID Levocetirizine Dihydrochloride (Xyzal), 5 MG PO HS Meloxicam (Mobic), 7.5 MG PO BID Scheduled PRN Albuterol Hfa (Ventolin Hfa), 2 PUFFS INH Q6H PRN for SOB/Wheezing Oxycodone Immediate Rel Tab (Roxicodone Ir), 1-2 TAB PO Q4H PRN for Severe Pain Oxycodone Ir (Roxicodone Ir), 1-2 TAB PO Q4H PRN for Pain Physical Exam Vital Signs Date Time Temp Pulse Resp B/P (MAP) Pulse Ox O2 Delivery O2 Flow Rate FiO2 02/18/18 22:30 80 20 138/82 99 02/18/18 20:44 36.9 106 18 125/81 95 Room Air Physical Exam VITAL SIGNS - Vital signs and nursing notes were reviewed. Stable. Afebrile. GENERAL -32-year-old female appearing her stated age who is in no acute distress. Communicates well with provider and answers questions appropriately. SKIN - Without rashes. No meningeal or petechial rash. The skin overlying the right foot is unremarkable. No edema, erythema or evidence of breaks in the integument. EXTREMITIES - No clubbing or peripheral cyanosis. No pretibial edema present. No tenderness with squeezing the distal aspect of the foot. There is point tenderness at the base of the toes where they insert and meet with the metatarsals. This is deep in the foot. No evidence of bony abnormality. She is neurovascularly intact in this region. +5/5 strength noted in UE/LE bilaterally. Medical Decision & Procedures ER Provider Diagnostic Interpretation: RIGHT FOOT 3 VIEWS HISTORY: Distal R foot pain COMPARISON: None. FINDINGS: There is no fracture or dislocation. Dorsal soft tissue swelling within the forefoot. Small posterior calcaneal spur. No radiopaque foreign bodies. IMPRESSION: No fractures. Electronically signed by: Juan Nguyen M.D. 02/18/2018 9:34 PM Dictated Date/Time: 02/18/2018 9:33 PM Medications Administered Medications (Trade) Dose Ordered Sig/Margarita Route Start Time Stop Time Status Last Admin Dose Admin Morphine Sulfate (MoRPHine SULFATE INJ) 4 mg STK-MED ONCE .ROUTE 02/18/18 21:06 02/18/18 21:07 DC 02/18/18 21:10 4 MG Morphine Sulfate (MoRPHine SULFATE INJ) 2 mg STK-MED ONCE .ROUTE 02/18/18 21:06 02/18/18 21:07 DC 02/18/18 21:10 2 MG Oxycodone HCl (Roxicodone Immediate Rel 5MG Home Pack) 1 homepack UD STAT PO 02/18/18 22:10 02/18/18 22:11 DC 02/18/18 22:36 1 HOMEPACK Medical Decision Patient was seen and evaluated as above in room D5. She presents with pain in the right foot. Review was performed of nursing notes and vital signs. After obtaining a thorough history and physical examination the above work up was performed. X-ray was obtained. She preferred an IM injection of pain medicine. She was given morphine. Ice packs were given. There is no fracture , dislocation or evidence of retained foreign body. I suspect likely Pearl's neuroma. She is to follow with orthopedics or podiatry. She is to return with worsening. She was given a prescription for oxycodone noting benefit versus risk. This is also after noting that she has tried [id number]'s medication and her prescribed medication without relief. No red flags in the [place] drug monitoring system. She was educated upon management and was given crutches to limit weightbearing noting that she already has a walking boot. The patient was educated upon management, had questions answered prior to discharge, and was discharged home in good condition. Of additional note as I was sending the prescription electronically for the oxycodone it had failed. I then printed the prescription for the patient. In the evaluation and treatment of this patient the following differential diagnoses were obtained: Fracture, dislocation, abscess, retained foreign body, contusion, among others. Impression Primary Impression: Foot pain Departure Information Dispostion Home / Self-Care Condition GOOD Prescriptions Oxycodone Ir (Roxicodone Ir) 5 Mg Tab 1-2 TAB PO Q4H Y for Pain, #15 TAB For Initial Treatment. Prov: Kevin Lemus PA-C 02/18/18 Referrals Elis Malin M.D. (PCP) Poncho Aponte M.D. Patient Instructions My [facility] Additional Instructions You have been treated in the Emergency Department for a foot pain. You have received pain medicine in the emergency department which impairs your ability to operate a vehicle. It is illegal for you to drive after receiving these medicines. You have been prescribed Oxy IR to be used for pain control. This is a narcotic medication. You cannot drive or consume alcohol while on this medicine. This medicine should only be used for pain that cannot be controlled with over-the- counter pain medicines. For pain control, you can use the following [id number] medicines (if >12 yo): - Regular strength (325mg/tab) Tylenol (acetaminophen) 2 tabs every 4-6 hours as needed. Do not exceed 12 tablets in a 24 hour period. Avoid taking more than 3 grams (3000 mg) of Tylenol per day. This includes any other sources of acetaminophen you may take on a regular basis. If this is a recent injury (<24 hrs), ice can be applied to the area of pain for the first 3 days to help decrease pain and inflammation. You have been provided the number for an Orthopaedic Surgeon. You should call this number as soon as possible to establish a follow-up visit from today's Emergency Department visit. Keep the ankle brace/splint in place until cleared by Orthopedics. Return to the Emergency Department if your current symptoms worsen despite treatment course outlined above, or if you develop any of the following symptoms : intractable pain despite aforementioned treatment course or new onset of numbness or tingling of the foot.
[2018-02-18 22:30] VITALS: BP 138/82; PULSE 80; O2SAT 99
== END 2018-02-18 22:59 | disposition home or self-care (01) ==
LOC: C.EDB 20:36 → C.EDD 22:59
DX: M79.671 Pain in right foot (principal); M32.9 Systemic lupus erythematosus, unspecified; F17.210 Nicotine dependence, cigarettes, uncomplicated; Z79.899 Other long term (current) drug therapy